=== PATIENT | male | born 1965 | race African-American/Black ===

== ENCOUNTER 2024-11-03 19:03 | Emergency (ER) | payer BC ==
[2024-11-03 19:35] VITALS: BMI 31.7
[2024-11-03] MEDS ORDERED: ACETAMINOPHEN INJECTION 100 ML ONE (20:10)
[2024-11-03] MEDS: ACETAMINOPHEN 1000 MG/100 ML BAG IVPB ONE (20:39)
[2024-11-03] MEDS: LACTATED RINGERS SOLUTION 1,000 ML/1,000 ML INFUS.BAG IV SCH (20:39)
[2024-11-03 21:16] LABS: ABSOLUTE IMMATURE GRANULOCYTES 0.07 x10^3/uL (0.0-0.031); BASOPHILS # 0.04 x10^3/uL (0.01-0.08); EOSINOPHIL % 0.2 % (0.8-7.0); EOSINOPHILS # 0.02 x10^3/uL (0.04-0.54); HEMATOCRIT 43.1 % (40.1-51.0); HEMOGLOBIN 15.5 g/dL (13.7-17.5); MEAN PLT VOLUME 9.7 fl (9.4-12.4); MONOCYTE # 1.55 x10^3/uL (0.30-0.82); MONOCYTE % 11.7 % (5.3-12.2); PLATELET COUNT 296 x10^3/uL (163-337); RDW 13.4 % (12.2-16.1)
[2024-11-03 21:22] LABS: VENOUS BASE EXCESS 1.6 mmol/L (-2-2); VENOUS O2 SATURATION 63.5 % (70-80); VENOUS PCO2 32.9 mmHg (38-52); VENOUS PH 7.486 (7.310-7.410)
[2024-11-03 21:30] LABS: INR 1.3 (0.83-1.09); PROTHROMBIN TIME (PATIENT) 14.3 SEC (9.7-13.0)
[2024-11-03 21:33] LABS: ACTIVATED PTT 35.5 SECONDS (25.2-36.5)
[2024-11-03 21:44] LABS: POTASSIUM 3.6 mmol/L (3.5-5.1)
[2024-11-03 21:49] LABS: CALCIUM 9.1 mg/dL (8.5-10.1)
[2024-11-03 21:50] LABS: ALBUMIN 3.1 g/dl (3.4-5.0)
[2024-11-03 21:53] LABS: CREATININE 1.7 mg/dL (0.55-1.3)
[2024-11-03 21:54] LABS: BILIRUBIN,TOTAL 1.3 mg/dL (0.2-1); TOT PROT 7.2 g/dl (6.4-8.2)
[2024-11-03] MEDS: SODIUM CHLORIDE 0.9% 1000 ML INFUS.BAG IV STA (23:19)
[2024-11-03 23:44] VITALS: BP 120/75; PULSE 80; RESP 19; TEMP 98.7
== END 2024-11-04 00:05 | disposition home or self-care (01) ==
LOC: JER 19:03
PROC: 3E033NZ Introduction of Analgesics, Hypnotics, Sedatives into Peripheral Vein, Percutaneous Approach (ICD-10-PCS; principal; 2024-11-03)
DX: R79.89 Other specified abnormal findings of blood chemistry (principal); R55 Syncope and collapse; E86.0 Dehydration; J18.9 Pneumonia, unspecified organism
CPT/HCPCS: 0241U-QW; 36415; 71046-TC-FY; 71275-TC; 80053; 82803; 83605; 83690; 83735; 84484; 85025; 85379; 85610; 85730; 93005; 93010; 99285-25; J0131